=== PATIENT | female | born 1970 | race Two or more races ===

== ENCOUNTER 2022-12-19 06:30 | Day surgery (SDC) | payer OTHER ==
[~2022-12-19] VITALS: Ht 167.6 cm; Wt 72.6 kg
[~2022-12-19 06:30] MED LIST: COZAAR100 MG PO; TOPROL XL25 M1 PO
== END 2022-12-19 14:35 | disposition home or self-care (01) ==
LOC: CIR.AMB 06:30
PROVIDERS: ATTEND Obstetrics & Gynecology
DX: N93.8 Other specified abnormal uterine and vaginal bleeding (principal); Z20.822 Contact with and (suspected) exposure to COVID-19; I10 Essential (primary) hypertension; D64.9 Anemia, unspecified

== ENCOUNTER → 2023-03-15 06:00 | Outpatient (CLI) | payer OTHER ==
[~2023-03-15] VITALS: Ht 167.6 cm; Wt 72.6 kg
[~2023-03-15 06:00] MED LIST changes: +TOPROL XL50 M1
== END | disposition home or self-care (01) ==
LOC: LAB 06:00 → SURG 03-20 10:13 → EDSTATUS 03-20 13:00
PROVIDERS: ATTEND Obstetrics & Gynecology
DX: N93.9 Abnormal uterine and vaginal bleeding, unspecified (principal); D25.1 Intramural leiomyoma of uterus; Z20.822 Contact with and (suspected) exposure to COVID-19

== ENCOUNTER 2023-03-28 11:52 | Outpatient (CLI) | payer OTHER ==
[~2023-03-28 11:52] MED LIST changes: -TOPROL XL50 M1
== END 2023-03-28 12:03 | disposition home or self-care (01) ==
LOC: LAB 11:52
PROVIDERS: ATTEND Internal Medicine Hematology & Oncology
DX: D50.0 Iron deficiency anemia secondary to blood loss (chronic) (principal)

== ENCOUNTER 2023-04-14 11:13 | Outpatient (CLI) | payer OTHER | END 2023-04-14 11:16 | disposition home or self-care (01) | LOC: LAB 11:13 | PROVIDERS: ATTEND Internal Medicine Hematology & Oncology | DX: U07.1 COVID-19 (principal) ==

== ENCOUNTER 2023-04-14 12:28 | Inpatient (IN) | payer OTHER ==
[~2023-04-14] VITALS: Ht 167.6 cm; Wt 72.6 kg
[2023-04-17] MEDS ORDERED: TOPROL XL50 M1 (15:27)
== END 2023-04-20 12:39 | disposition home or self-care (01) | DRG 743 ==
LOC: O/R 04-17 05:34 → OB/GYN 04-17 05:34
PROVIDERS: ADMIT Obstetrics & Gynecology; ATTEND Obstetrics & Gynecology
PROC: 0UT70ZZ Resection of Bilateral Fallopian Tubes, Open Approach (ICD-10-PCS; 2023-04-17)
PROC: 0UT20ZZ Resection of Bilateral Ovaries, Open Approach (ICD-10-PCS; 2023-04-17)
PROC: 0UT90ZZ Resection of Uterus, Open Approach (ICD-10-PCS; principal; 2023-04-17 14:15)
DX: D25.2 Subserosal leiomyoma of uterus (principal); N84.0 Polyp of corpus uteri; N84.1 Polyp of cervix uteri; N72 Inflammatory disease of cervix uteri; Z20.822 Contact with and (suspected) exposure to COVID-19